=== PATIENT | female | born 1990 | race Caucasian/White ===

== ENCOUNTER 2017-08-22 11:43 | Emergency (ER) | payer OTHER ==
[~2017-08-22] VITALS: Ht 149.9 cm; Wt 72.6 kg
[2017-08-22 11:56] VITALS: Ht 149.9 cm; Wt 72.6 kg
[2017-08-22 14:54] LABS: UA SPECIFIC GRAVITY 1.025 (1.005-1.035); microscopic required? YES; urine erythrocyte NEGATIVE (NEGATIVE)
[2017-08-22 15:25] VITALS: BP 124/77
== END 2017-08-22 15:25 | disposition home or self-care (01) ==
LOC: ED 11:43
PROVIDERS: Emergency Medicine Emergency Medical Services
DX: M54.5 Low back pain (principal); N39.0 Urinary tract infection, site not specified
CPT/HCPCS: J0696; J3010